=== PATIENT | male | born 1985 | race Caucasian/White ===

== ENCOUNTER 2022-03-07 17:07 | Emergency (ER) | payer OTHER, MEDICAID, SELFPAY ==
--- NOTE | ~2022-03-07 | XR_ITS ---
EXAMINATION: XR HAND, LEFT CLINICAL INFORMATION: Left hand pain status post laceration. COMPARISON: None TECHNIQUE: PA, lateral, and oblique views of the left hand. FINDINGS: Bandages overlie the proximal phalanx of the fifth digit. Underlying soft tissue deformity seen without radiopaque foreign body. There is mild soft tissue swelling. No acute fracture or dislocation is seen. The joint spaces are unremarkable the carpal bones are normally aligned. XR/XR hand LT min 3V IMPRESSION: Soft tissue injury in the fifth digit without acute underlying osseous abnormality. No radiopaque foreign body.
[2022-03-07 17:11] VITALS: BP 165/97; PULSE 96; RESP 16; TEMP 36.5; O2SAT 97; BMI 31.4
--- NOTE | 2022-03-07 17:18 | ED.WOUNDLAC ---
HPI - Wound/Laceration General Chief Complaint: Wound/Laceration Stated Complaint: Finger lac Time Seen by Provider: 03/07/22 17:16 Source: patient and translator and interpreter Mode of arrival: ambulatory Limitations: no limitations and language barrier History of Present Illness HPI narrative: 36 yo male right hand dominant here with left hand pain after fall just [employer]. Patient reports he was on a ladder gripping in with his left hand when he fell to the left side causing his hand to be crushed between ground and ladder. No hitting of the head or loc. Tetanus >5 yrs Related Data Previous Rx's Medication Instructions Recorded amoxicillin 875 mg-potassium 1 tab PO BID #14 tabs 03/07/22 clavulanate 125 mg tablet ibuprofen 600 mg tablet 600 mg PO Q6H PRN pain #30 tabs 03/07/22 Allergies Allergy/AdvReac Type Severity Reaction Status Date / Time No Known Allergies Allergy Verified 03/07/22 17:13 Review of Systems Review of Systems: Yes all other systems are reviewed and are negative Constitutional: Constitutional: Reports no additional constitutional complaints, Denies body ache(s), Denies chills, Denies fever(s), Denies headache(s) and Denies weakness Eyes: Eyes: Reports no additional eye complaints and Denies change in vision ENT: Reports system reviewed and no additional complaints, except as documented, Denies dizziness, Denies headache(s), Denies nasal congestion, Denies nasal discharge and Denies neck pain Cardiovascular: Cardiovascular: Reports no additional cardiovascular complaints, Denies chest pain, Denies leg edema and Denies dyspnea Respiratory: Respiratory: Reports no additional respiratory complaints, Denies cough and Denies dyspnea Gastrointestinal: Gastrointestinal: Reports no additional gastrointestinal complaints, Denies abdominal pain, Denies diarrhea, Denies nausea and Denies vomiting Genitourinary: Genitourinary: Denies urinary incontinence Musculoskeletal: Musculoskeletal: Reports no additional musculoskeletal complaints, Denies back pain, Reports arthralgias, Denies joint swelling, Reports limited range of motion, Denies neck pain, Denies numbness and Denies tingling Integumentary/Breasts: Skin/Breast: Reports system reviewed and no additional complaints, except as docu and Denies rash Neurologic: Reports system reviewed and no additional complaints, except as documented, Denies Abnormal speech present, Denies dizziness, Denies headache(s), Denies numbness, Denies tingling and Denies weakness PMFSH Past Medical History Attestation statement: The following information was validated with the patient. Source: nursing notes reviewed Social History Social History Advance Directives: No Advance Directives Information Provided: No Physical Exam Vital Signs: Vital Signs: Last Vital Signs Temp 97.7 F 03/07/22 17:11 Pulse 96 03/07/22 17:11 Resp 16 03/07/22 17:11 BP 165/97 H 03/07/22 17:11 Pulse Ox 97 03/07/22 17:11 O2 Del Method 03/07/22 17:11 BMI result Body Mass Index 31.4 Const: General: cooperative, healthy appearing, comfortable and no acute distress Orientation/consciousness: patient oriented x3 Limitations: no limitations HEENT: Head: Yes normal to inspection Ears: hearing grossly normal bilaterally General nose exam: Normal external nose present Face and sinus: Yes normal facial exam Mouth: Normal oral and palatal mucosa present Throat: Yes posterior oropharynx normal Eyes: General: appearance normal, both eyes and all related structures Pupils: Equal, round and reactive pupils present Neck: Neck: Yes normal visual inspection Chest: Chest palpation & inspection: normal inspection of the chest Resp: Effort & Inspection: normal respiratory effort Auscultation: clear to auscultation bilaterally Cardio: Rate: regular rate Rhythm: regular rhythm Peripheral pulses: Peripheral pulses 2+ throughout GI: Inspection: Yes normal to inspection Palpation (GI): Soft to palpation and nontender Auscultation: normal bowel sounds Back/Spine/Pelvis: Thoracic/Lumbar Spine: thoracic and lumbar spine normal to inspection Skin: General skin exam: no rashes or lesions noted Neuro: General: patient oriented x3, no focal motor deficits and normal sensation to monofilament Cranial nerves: Yes Equal, round and reactive pupils present Cognition (Neuro): normal cognition Speech: No Abnormal speech present Gait exam (Neuro): Normal gait present Motor exam (neuro): 5/5 motor strength present throughout Extrem: General: Yes normal to inspection Course Course Course Narrative: X-rays show no bony abnormality. Likely sprain. Reviewed RICE. Reviewed worrisome signs/symptoms with patient and when to seek additional care. Comfortable with discharge home. MDM - Wound/Laceration Medical Records Attestation: I reviewed the patient's medical records. Lab Data Attestation: I reviewed the patient's lab results. Imaging Data foot x-ray: Attestation: I personally reviewed and interpreted this imaging study as follows: Radiologist's impression: [address] [address] XRay Report Signed Patient: Gee Lugo MR#: [id number] : 1985 Acct:[id number] Age/Sex: 36 / M ADM Date: 03/07/22 Loc: HO.ED Attending Dr: Ordering Physician: Yola Singh DO Date of Service: 03/07/22 Procedure(s): XR hand LT min 3V Accession Number(s): [id number] cc: Yola Singh DO~ EXAMINATION: XR HAND, LEFT CLINICAL INFORMATION: Left hand pain status post laceration.? COMPARISON: None? TECHNIQUE: PA, lateral, and oblique views of the left hand. FINDINGS: Bandages overlie the proximal phalanx of the fifth digit. Underlying soft tissue deformity seen without radiopaque foreign body. There is mild soft tissue swelling. No acute fracture or dislocation is seen. The joint spaces are unremarkable the carpal bones are normally aligned. XR/XR hand LT min 3V IMPRESSION: Soft tissue injury in the fifth digit without acute underlying osseous abnormality. No radiopaque foreign body. Procedures Procedure Narrative Procedure Narrative: Aircast, crutches Discharge Plan Discharge Clinical Impression: Laceration Patient Disposition: Home, Self-Care Instructions: Laceration (ED) Additional Instructions: sutures out in 7-10 days motrin or tylenol for pain as needed Wash with soap and water daily Come back for redness, fever, drainage from wound Prescriptions: New amoxicillin-pot clavulanate 875-125 mg tablet 1 tab PO BID Qty: 14 0RF ibuprofen 600 mg tablet 600 mg PO Q6H PRN (Reason: pain) Qty: 30 0RF Referrals: Physician,Unknown J [Primary Care Provider] - Stand Alone Forms: Work/School Release Interventions: ED Discharge Assessment Last Done: 03/07/22 18:55 Discharge Date/Time: 03/07/22 18:56
[2022-03-07] MEDS: Diphth,Pertus(ACell),Tet Adult 0.5 ML SYRINGE IM (18:39)
== END 2022-03-07 18:56 | disposition home or self-care (01) ==
PROVIDERS: Emergency Provider Emergency Medicine
DX: S61.412A Laceration without foreign body of left hand, initial encounter (principal); S40.812A Abrasion of left upper arm, initial encounter; W26.9XXA Contact with unspecified sharp object(s), initial encounter; Y93.9 Activity, unspecified; Y92.9 Unspecified place or not applicable; Y99.9 Unspecified external cause status; Z79.899 Other long term (current) drug therapy
CPT/HCPCS: 12001; 12011; 73130; 90471; 90715; 99282; 99284